=== PATIENT | female | born 1940 | race Caucasian/White ===

== ENCOUNTER 2021-09-06 02:13 | Observation (INO) ==
[2021-09-06] MEDS ORDERED: Ondansetron 4 MG/2 ML VIAL IVP PRN ×2 (06:49→10:05)
[2021-09-06] MEDS ORDERED: Naloxone 0.4 MG/ML INJ IVP PRN ×2 (06:49→10:02)
[2021-09-06] MEDS ORDERED: 0.9 % Sodium Chloride 1,000 ML IVC SCH (07:00)
[2021-09-06 07:53] LABS: Basophils % 0.4 %; Eosinophils # 0.1 K/mcL (0.0-0.6); Eosinophils % 1.6 %; Hematocrit 29.3 % (35.3-44.9); Hemoglobin 9.4 g/dL (11.5-15.4); Immature Granulocytes % 0.4 % (0-4); Lymphocytes # 0.8 K/mcL (0.6-4.6); Lymphocytes % 17.1 %; Mean Corpuscular HGB Conc 32.1 g/dL (31.6-35.5); Mean Corpuscular Hemoglobin 33.5 pg (28.0-33.3); Mean Corpuscular Volume 104.3 fL (83.0-100.0); Mean Platelet Volume 9.1 fL (9.4-12.4); Monocytes # 0.4 K/mcL (0.0-1.3); Monocytes % 8.9 %; Neutrophils # 3.5 K/mcL (1.6-8.9); Platelet Count 222 K/mcL (140-400); Red Blood Count 2.81 M/mcL (3.82-4.97); Red Cell Distribution Width 14.6 % (11.5-14.5); Segmented Neutrophils % 71.6 %; White Blood Count 4.9 K/mcL (4.3-11.1)
[2021-09-06 08:03] LABS: Albumin 2.8 g/dL (3.5-5.7); Albumin/Globulin Ratio 1.3 (1.1-2.2); Bilirubin,Direct 0.1 mg/dL (0.0-0.2); Bilirubin,Indirect 0.5 mg/dL (0.0-1.0); Bilirubin,Total 0.6 mg/dL (0.3-1.0); Globulin 2.1 g/dL (2.4-3.5); Magnesium 1.3 mg/dL (1.6-2.6); Potassium 3.4 mEq/L (3.5-5.1); Total Protein 4.9 g/dL (6.4-8.9)
[2021-09-06] MEDS ORDERED: Ondansetron ODT 4 MG TAB.RAPDIS SL PRN (10:02)
[2021-09-06] MEDS ORDERED: MOM Conc 10 ML UD.LIQ PO PRN (10:02)
[2021-09-06] MEDS ORDERED: Mag Hydrox/Al Hydrox/Simeth 30 ML UDC PO PRN (10:02)
[2021-09-06 10:38] LABS: INR 2.9; Prothrombin Time 32.2 Seconds (9.4-12.1)
[2021-09-06] MEDS: GlipiZIDE 5 MG TABLET PO SCH (11:24)
[2021-09-06] MEDS: FLUoxetine 20 MG CAPSULE PO SCH (11:24)
[2021-09-06] MEDS: *HR* Metformin 500 MG TABLET PO SCH ×2 (11:26→20:13)
[2021-09-06] MEDS: Famotidine 20 MG TABLET PO SCH (11:26)
[2021-09-06 16:28] LABS: Bilirubin,Urine Small (Negative); Blood,Urine Negative (Negative); Clarity,Urine Clear (Clear); Color,Urine Yellow (Yellow); Glucose,Urine (UA) Normal (Normal); Ketones,Urine Trace mg/dL (Negative); Leukocyte Esterase,Urine Negative (Negative); Nitrite,Urine Negative (Negative); Protein,Urine Trace mg/dL (Neg-Trace); Specific Gravity,Urine 1.025 (1.010-1.025); Urobilinogen,Urine Normal (Normal)
[2021-09-06] MEDS ORDERED: *HR* Warfarin 5 MG TABLET PO ONE (18:00)
[2021-09-06] MEDS: Gabapentin 300 MG CAPSULE PO SCH (20:13)
[2021-09-07 04:54] LABS: Basophils % 0.4 %; Eosinophils # 0.1 K/mcL (0.0-0.6); Eosinophils % 2.5 %; Hematocrit 28.6 % (35.3-44.9); Hemoglobin 9.2 g/dL (11.5-15.4); Immature Granulocytes % 0.4 % (0-4); Lymphocytes # 1.2 K/mcL (0.6-4.6); Lymphocytes % 25.7 %; Mean Corpuscular HGB Conc 32.2 g/dL (31.6-35.5); Mean Corpuscular Hemoglobin 33.5 pg (28.0-33.3); Mean Platelet Volume 9.2 fL (9.4-12.4); Monocytes # 0.5 K/mcL (0.0-1.3); Monocytes % 10.9 %; Neutrophils # 2.9 K/mcL (1.6-8.9); Platelet Count 220 K/mcL (140-400); Red Blood Count 2.75 M/mcL (3.82-4.97); Segmented Neutrophils % 60.1 %; White Blood Count 4.8 K/mcL (4.3-11.1)
[2021-09-07 04:57] LABS: INR 2.2; Prothrombin Time 24.5 Seconds (9.4-12.1)
[2021-09-07 05:08] LABS: Albumin 2.8 g/dL (3.5-5.7); Albumin/Globulin Ratio 1.5 (1.1-2.2); Bilirubin,Total 0.4 mg/dL (0.3-1.0); Calcium 9.2 mg/dL (8.6-10.3); Globulin 1.9 g/dL (2.4-3.5); Magnesium 1.6 mg/dL (1.6-2.6); Phosphorous 2.5 mg/dL (2.7-4.5); Potassium 3.8 mEq/L (3.5-5.1); Total Protein 4.7 g/dL (6.4-8.9)
[2021-09-07] MEDS: *HR* Metformin 500 MG TABLET PO SCH ×2 (08:35→20:55)
[2021-09-07] MEDS: FLUoxetine 20 MG CAPSULE PO SCH (08:35)
[2021-09-07] MEDS: Famotidine 20 MG TABLET PO SCH (08:36)
[2021-09-07] MEDS: GlipiZIDE 5 MG TABLET PO SCH (08:36)
[2021-09-07] MEDS: Acetaminophen 325 MG TABLET PO PRN (08:36)
[2021-09-07] MEDS ORDERED: Warfarin perPT PO SCH (09:00)
[2021-09-07] MEDS ORDERED: Warfarin perPT PO PRN (14:00)
[2021-09-07] MEDS: Gabapentin 300 MG CAPSULE PO SCH (20:55)
[2021-09-08] MEDS: FLUoxetine 20 MG CAPSULE PO SCH (08:08)
[2021-09-08] MEDS: *HR* Metformin 500 MG TABLET PO SCH ×2 (08:08→23:07)
[2021-09-08] MEDS: GlipiZIDE 5 MG TABLET PO SCH (08:09)
[2021-09-08] MEDS: Famotidine 20 MG TABLET PO SCH (09:10)
[2021-09-08 18:08] LABS: INR 1.5; Prothrombin Time 16.9 Seconds (9.4-12.1)
[2021-09-08] MEDS ORDERED: *HR* Warfarin 7.5 MG TABLET PO ONE (18:30)
[2021-09-08] MEDS: Gabapentin 300 MG CAPSULE PO SCH (23:06)
[2021-09-08] MEDS: Melatonin 3 MG TABLET PO PRN (23:07)
[2021-09-09 04:43] LABS: Hematocrit 28.6 % (35.3-44.9); Hemoglobin 9.1 g/dL (11.5-15.4); Mean Corpuscular HGB Conc 31.8 g/dL (31.6-35.5); Mean Corpuscular Hemoglobin 33.7 pg (28.0-33.3); Mean Corpuscular Volume 105.9 fL (83.0-100.0); Mean Platelet Volume 9.2 fL (9.4-12.4); Platelet Count 198 K/mcL (140-400); Red Cell Distribution Width 14.7 % (11.5-14.5); White Blood Count 4.9 K/mcL (4.3-11.1)
[2021-09-09 04:47] LABS: INR 1.5; Prothrombin Time 16.4 Seconds (9.4-12.1)
[2021-09-09 04:59] LABS: BUN/Creatinine Ratio 31 (6-26); Blood Urea Nitrogen 32 mg/dL (8-23); Calcium 9.1 mg/dL (8.6-10.3); Carbon Dioxide 27 mEq/L (23-29); Chloride 106 mEq/L (98-107); Glucose 90 mg/dL (70-105); Osmolality,Calculated 292 (280-300); Potassium 4.3 mEq/L (3.5-5.1); Sodium 138 mEq/L (136-145); eGFR For African Americans > 60 (> 60); eGFR For Non-African Americans 52 (> 60)
[2021-09-09] MEDS: Acetaminophen 325 MG TABLET PO PRN ×2 (08:40→21:36)
[2021-09-09] MEDS: GlipiZIDE 5 MG TABLET PO SCH (08:40)
[2021-09-09] MEDS: *HR* Metformin 500 MG TABLET PO SCH ×2 (08:40→21:36)
[2021-09-09] MEDS: FLUoxetine 20 MG CAPSULE PO SCH (08:40)
[2021-09-09] MEDS: Famotidine 20 MG TABLET PO SCH (08:41)
[2021-09-09 12:22] LABS: % Iron Saturation 31 % (15-50); Iron 73 mcg/dL (50-170); Transferrin 166 mg/dL (203-362)
[2021-09-09 12:48] LABS: Vitamin B12 76 pg/mL (250-1100)
[2021-09-09 12:51] LABS: Folate > 22.3 ng/mL (3.0-16.0)
[2021-09-09] MEDS ORDERED: *HR* Dextrose 50 % in Water (Syg) 50 ML SYRINGE IVP PRN (15:53)
[2021-09-09] MEDS ORDERED: D5% in Water 1,000 ML IVC PRN (15:53)
[2021-09-09] MEDS ORDERED: Dextrose Gel 15 GM/37.5 ML TUBE PO PRN ×2 (15:53)
[2021-09-09] MEDS ORDERED: *HR* Warfarin 7.5 MG TABLET PO ONE (18:00)
[2021-09-09] MEDS: Nystatin POWDER 30 GM BOTTLE TP SCH (21:36)
[2021-09-09] MEDS: Melatonin 3 MG TABLET PO PRN (21:36)
[2021-09-09] MEDS: Gabapentin 300 MG CAPSULE PO SCH (21:37)
[2021-09-10 04:57] LABS: INR 1.5; Prothrombin Time 16.6 Seconds (9.4-12.1)
[2021-09-10] MEDS: Famotidine 20 MG TABLET PO SCH (08:08)
[2021-09-10] MEDS: Nystatin POWDER 30 GM BOTTLE TP SCH ×3 (08:08→20:48)
[2021-09-10] MEDS: *HR* Metformin 500 MG TABLET PO SCH ×2 (08:08→20:46)
[2021-09-10] MEDS: FLUoxetine 20 MG CAPSULE PO SCH (08:08)
[2021-09-10] MEDS: Acetaminophen 325 MG TABLET PO PRN ×2 (08:09→20:46)
[2021-09-10] MEDS: Cyanocobalamin (B-12) 1,000 MCG TABLET PO SCH (16:33)
[2021-09-10] MEDS ORDERED: *HR* Warfarin 7.5 MG TABLET PO ONE (18:00)
[2021-09-10] MEDS: Gabapentin 300 MG CAPSULE PO SCH (20:47)
[2021-09-10] MEDS: Melatonin 3 MG TABLET PO PRN (20:47)
[2021-09-11 04:51] LABS: INR 2.4; Prothrombin Time 26.2 Seconds (9.4-12.1)
[2021-09-11] MEDS: Cyanocobalamin (B-12) 1,000 MCG TABLET PO SCH (10:14)
[2021-09-11] MEDS: Famotidine 20 MG TABLET PO SCH (10:14)
[2021-09-11] MEDS: FLUoxetine 20 MG CAPSULE PO SCH (10:14)
[2021-09-11] MEDS: Nystatin POWDER 30 GM BOTTLE TP SCH ×2 (10:15→15:16)
[2021-09-11] MEDS: *HR* Metformin 500 MG TABLET PO SCH ×2 (10:15→21:12)
[2021-09-11] MEDS ORDERED: *HR* Warfarin 2 MG TABLET PO ONE (18:00)
[2021-09-11 19:35] VITALS: PULSE 80; TEMP 97.7; O2SAT 98
[2021-09-11] MEDS: Gabapentin 300 MG CAPSULE PO SCH (21:12)
[2021-09-12 05:37] LABS: INR 2.8; Prothrombin Time 31.4 Seconds (9.4-12.1)
[2021-09-12 07:13] VITALS: BP 127/66; RESP 17
[2021-09-12] MEDS: Nystatin POWDER 30 GM BOTTLE TP SCH (08:24)
[2021-09-12] MEDS: FLUoxetine 20 MG CAPSULE PO SCH (08:24)
[2021-09-12] MEDS: *HR* Metformin 500 MG TABLET PO SCH (08:24)
[2021-09-12] MEDS: Cyanocobalamin (B-12) 1,000 MCG TABLET PO SCH (08:25)
[2021-09-12] MEDS: Famotidine 20 MG TABLET PO SCH (08:25)
== END 2021-09-12 11:20 | disposition hospice, home (50) ==
LOC: INPGRE
PROVIDERS: ADMIT Family Medicine; ATTEND Family Medicine

== ENCOUNTER 2021-11-17 10:03 | Inpatient (IN) ==
[2021-11-17] MEDS ORDERED: *HR* LORazepam 0.5 MG TABLET PO PRN (16:28)
[2021-11-17] MEDS ORDERED: Ondansetron ODT 4 MG TAB.RAPDIS SL PRN (16:28)
[2021-11-17] MEDS ORDERED: haloperidoL 1 MG TABLET PO PRN (16:41)
[2021-11-17] MEDS: Gabapentin 300 MG CAPSULE PO SCH (20:53)
[2021-11-17] MEDS: Sennosides 8.6 MG TABLET PO SCH (20:54)
[2021-11-17] MEDS: Acetaminophen 325 MG TABLET PO SCH (20:54)
[2021-11-17] MEDS ORDERED: Famotidine 20 MG TABLET PO SCH (21:00)
[2021-11-18] MEDS: Acetaminophen 325 MG TABLET PO SCH ×2 (03:39→09:05)
[2021-11-18 04:21] LABS: Hemoglobin 9.2 g/dL (11.5-15.4); Mean Corpuscular HGB Conc 31.7 g/dL (31.6-35.5); Mean Corpuscular Hemoglobin 34.2 pg (28.0-33.3); Mean Corpuscular Volume 107.8 fL (83.0-100.0); Mean Platelet Volume 9.4 fL (9.4-12.4); Platelet Count 204 K/mcL (140-400); Red Blood Count 2.69 M/mcL (3.82-4.97); White Blood Count 3.9 K/mcL (4.3-11.1)
[2021-11-18 04:41] LABS: Albumin 2.6 g/dL (3.5-5.7); Albumin/Globulin Ratio 1.3 (1.1-2.2); Bilirubin,Total 0.3 mg/dL (0.3-1.0); Calcium 8.8 mg/dL (8.6-10.3); Magnesium 1.7 mg/dL (1.6-2.6); Potassium 4.3 mEq/L (3.5-5.1); Total Protein 4.6 g/dL (6.4-8.9)
[2021-11-18] MEDS: *HR* Enoxaparin 40 MG/0.4 ML SYRINGE SQ SCH (06:28)
[2021-11-18] MEDS: Loratadine 10 MG TABLET PO SCH (09:06)
[2021-11-18] MEDS: Sennosides 8.6 MG TABLET PO SCH ×2 (09:06→20:29)
[2021-11-18 14:02] LABS: Estimated Average Glucose 174 mg/dl; Hemoglobin A1C 7.7 %
[2021-11-18 16:48] LABS: Bilirubin,Urine Negative (Negative); Blood,Urine Negative (Negative); Clarity,Urine Clear (Clear); Color,Urine Yellow (Yellow); Glucose,Urine (UA) 100 mg/dL (Normal); Ketones,Urine Negative (Negative); Leukocyte Esterase,Urine Small (Negative); Nitrite,Urine Negative (Negative); Protein,Urine Negative (Neg-Trace); Specific Gravity,Urine 1.025 (1.010-1.025); Urobilinogen,Urine Normal (Normal)
[2021-11-18 16:52] LABS: Bacteria,Urine Few per hpf (None-Few); RBC,Urine 0-3 per hpf (0-3); Squamous Epithelial Cell,Urine Few per hpf (None-Few)
[2021-11-18] MEDS: Famotidine 20 MG TABLET PO SCH (20:28)
[2021-11-18] MEDS: Gabapentin 300 MG CAPSULE PO SCH (20:28)
[2021-11-19] MEDS: *HR* Enoxaparin 40 MG/0.4 ML SYRINGE SQ SCH (05:27)
[2021-11-19] MEDS: Loratadine 10 MG TABLET PO SCH (08:19)
[2021-11-19] MEDS: Sennosides 8.6 MG TABLET PO SCH ×2 (08:19→20:36)
[2021-11-19] MEDS: Famotidine 20 MG TABLET PO SCH (20:36)
[2021-11-19] MEDS: Gabapentin 300 MG CAPSULE PO SCH (20:36)
[2021-11-20] MEDS: *HR* Enoxaparin 40 MG/0.4 ML SYRINGE SQ SCH (04:34)
[2021-11-20 05:46] LABS: Basophils % 0.5 %; Eosinophils # 0.1 K/mcL (0.0-0.6); Hematocrit 29.3 % (35.3-44.9); Hemoglobin 9.3 g/dL (11.5-15.4); Immature Granulocytes % 0.2 % (0-4); Lymphocytes # 1.1 K/mcL (0.6-4.6); Lymphocytes % 27.4 %; Mean Corpuscular HGB Conc 31.7 g/dL (31.6-35.5); Mean Corpuscular Hemoglobin 34.4 pg (28.0-33.3); Mean Corpuscular Volume 108.5 fL (83.0-100.0); Mean Platelet Volume 9.6 fL (9.4-12.4); Monocytes # 0.5 K/mcL (0.0-1.3); Monocytes % 12.2 %; Neutrophils # 2.4 K/mcL (1.6-8.9); Platelet Count 225 K/mcL (140-400); Red Cell Distribution Width 13.2 % (11.5-14.5); Segmented Neutrophils % 57.7 %; White Blood Count 4.1 K/mcL (4.3-11.1)
[2021-11-20 06:09] LABS: Albumin 2.6 g/dL (3.5-5.7); Albumin/Globulin Ratio 1.2 (1.1-2.2); Bilirubin,Total 0.3 mg/dL (0.3-1.0); Globulin 2.2 g/dL (2.4-3.5); Magnesium 1.6 mg/dL (1.6-2.6); Potassium 4.6 mEq/L (3.5-5.1); Total Protein 4.8 g/dL (6.4-8.9)
[2021-11-20] MEDS: Sennosides 8.6 MG TABLET PO SCH ×2 (08:29→19:46)
[2021-11-20] MEDS: Loratadine 10 MG TABLET PO SCH (08:30)
[2021-11-20] MEDS: Gabapentin 300 MG CAPSULE PO SCH (19:45)
[2021-11-20] MEDS: Famotidine 20 MG TABLET PO SCH (19:46)
[2021-11-21] MEDS: *HR* Enoxaparin 40 MG/0.4 ML SYRINGE SQ SCH (05:55)
[2021-11-21] MEDS: Loratadine 10 MG TABLET PO SCH (09:43)
[2021-11-21] MEDS: *HR* OxyCODONE Immed Rel 5 MG TABLET PO PRN (09:43)
[2021-11-21] MEDS: Sennosides 8.6 MG TABLET PO SCH ×2 (09:44→20:45)
[2021-11-21] MEDS: Gabapentin 300 MG CAPSULE PO SCH (20:45)
[2021-11-21] MEDS: Famotidine 20 MG TABLET PO SCH (20:46)
[2021-11-21] MEDS: cephALEXin 500 MG CAPSULE PO SCH (20:46)
[2021-11-22] MEDS: *HR* Enoxaparin 40 MG/0.4 ML SYRINGE SQ SCH (04:57)
[2021-11-22] MEDS: Sennosides 8.6 MG TABLET PO SCH ×2 (08:23→21:39)
[2021-11-22] MEDS: cephALEXin 500 MG CAPSULE PO SCH ×3 (08:23→21:38)
[2021-11-22] MEDS: *HR* OxyCODONE Immed Rel 5 MG TABLET PO PRN ×2 (08:23→21:39)
[2021-11-22] MEDS: Loratadine 10 MG TABLET PO SCH (08:23)
[2021-11-22] MEDS: tiZANidine 4 MG TABLET PO PRN (12:29)
[2021-11-22] MEDS: Famotidine 20 MG TABLET PO SCH (21:38)
[2021-11-22] MEDS: Gabapentin 300 MG CAPSULE PO SCH (21:38)
[2021-11-23 03:52] LABS: Basophils % 0.5 %; Eosinophils # 0.1 K/mcL (0.0-0.6); Eosinophils % 2.7 %; Hemoglobin 8.5 g/dL (11.5-15.4); Immature Granulocytes % 0.3 % (0-4); Lymphocytes # 1.3 K/mcL (0.6-4.6); Mean Corpuscular HGB Conc 31.5 g/dL (31.6-35.5); Mean Corpuscular Hemoglobin 34.1 pg (28.0-33.3); Mean Corpuscular Volume 108.4 fL (83.0-100.0); Mean Platelet Volume 9.6 fL (9.4-12.4); Monocytes # 0.5 K/mcL (0.0-1.3); Monocytes % 12.8 %; Neutrophils # 1.8 K/mcL (1.6-8.9); Platelet Count 231 K/mcL (140-400); Red Blood Count 2.49 M/mcL (3.82-4.97); Red Cell Distribution Width 13.2 % (11.5-14.5); Segmented Neutrophils % 49.7 %; White Blood Count 3.7 K/mcL (4.3-11.1)
[2021-11-23 04:10] LABS: Calcium 8.9 mg/dL (8.6-10.3); Potassium 4.8 mEq/L (3.5-5.1)
[2021-11-23] MEDS: *HR* Enoxaparin 40 MG/0.4 ML SYRINGE SQ SCH (05:44)
[2021-11-23] MEDS: Sennosides 8.6 MG TABLET PO SCH ×2 (09:19→21:16)
[2021-11-23] MEDS: Loratadine 10 MG TABLET PO SCH (09:19)
[2021-11-23] MEDS: cephALEXin 500 MG CAPSULE PO SCH ×3 (09:19→21:16)
[2021-11-23] MEDS: Famotidine 20 MG TABLET PO SCH (21:16)
[2021-11-23] MEDS: Gabapentin 300 MG CAPSULE PO SCH (21:16)
[2021-11-23] MEDS: *HR* OxyCODONE Immed Rel 5 MG TABLET PO PRN (21:17)
[2021-11-24] MEDS: *HR* Enoxaparin 40 MG/0.4 ML SYRINGE SQ SCH (06:37)
[2021-11-24] MEDS: *HR* OxyCODONE Immed Rel 5 MG TABLET PO PRN (09:08)
[2021-11-24] MEDS: Loratadine 10 MG TABLET PO SCH (09:08)
[2021-11-24] MEDS: cephALEXin 500 MG CAPSULE PO SCH ×3 (09:08→21:54)
[2021-11-24] MEDS: Sennosides 8.6 MG TABLET PO SCH ×2 (09:09→21:54)
[2021-11-24] MEDS: tiZANidine 4 MG TABLET PO PRN (15:45)
[2021-11-24] MEDS: Famotidine 20 MG TABLET PO SCH (21:54)
[2021-11-24] MEDS: Gabapentin 300 MG CAPSULE PO SCH (21:54)
[2021-11-25] MEDS: *HR* OxyCODONE Immed Rel 5 MG TABLET PO PRN (04:49)
[2021-11-25] MEDS: *HR* Enoxaparin 40 MG/0.4 ML SYRINGE SQ SCH (04:52)
[2021-11-25] MEDS: cephALEXin 500 MG CAPSULE PO SCH ×3 (09:19→20:01)
[2021-11-25] MEDS: Loratadine 10 MG TABLET PO SCH (09:19)
[2021-11-25] MEDS: Sennosides 8.6 MG TABLET PO SCH ×2 (09:20→20:01)
[2021-11-25] MEDS: Gabapentin 300 MG CAPSULE PO SCH (20:00)
[2021-11-25] MEDS: Famotidine 20 MG TABLET PO SCH (20:01)
[2021-11-26] MEDS: *HR* Enoxaparin 40 MG/0.4 ML SYRINGE SQ SCH (05:09)
[2021-11-26] MEDS: Sennosides 8.6 MG TABLET PO SCH ×2 (09:33→21:41)
[2021-11-26] MEDS: cephALEXin 500 MG CAPSULE PO SCH ×3 (09:33→21:41)
[2021-11-26] MEDS: Loratadine 10 MG TABLET PO SCH (09:34)
[2021-11-26] MEDS: Gabapentin 300 MG CAPSULE PO SCH (21:40)
[2021-11-26] MEDS: Famotidine 20 MG TABLET PO SCH (21:41)
[2021-11-27 05:03] LABS: Basophils % 0.9 %; Eosinophils # 0.1 K/mcL (0.0-0.6); Hematocrit 28.5 % (35.3-44.9); Hemoglobin 9.1 g/dL (11.5-15.4); Immature Granulocytes % 0.3 % (0-4); Lymphocytes % 28.2 %; Mean Corpuscular HGB Conc 31.9 g/dL (31.6-35.5); Mean Corpuscular Hemoglobin 34.5 pg (28.0-33.3); Mean Platelet Volume 9.6 fL (9.4-12.4); Monocytes # 0.5 K/mcL (0.0-1.3); Monocytes % 13.8 %; Platelet Count 244 K/mcL (140-400); Red Blood Count 2.64 M/mcL (3.82-4.97); Red Cell Distribution Width 13.4 % (11.5-14.5); Segmented Neutrophils % 52.8 %; White Blood Count 3.5 K/mcL (4.3-11.1)
[2021-11-27 05:07] LABS: Neutrophils # 1.9 K/mcL (1.6-8.9)
[2021-11-27 05:14] LABS: Calcium 9.3 mg/dL (8.6-10.3); Potassium 5.1 mEq/L (3.5-5.1)
[2021-11-27] MEDS: *HR* Enoxaparin 40 MG/0.4 ML SYRINGE SQ SCH (05:29)
[2021-11-27] MEDS: Sennosides 8.6 MG TABLET PO SCH ×2 (09:41→22:43)
[2021-11-27] MEDS: Loratadine 10 MG TABLET PO SCH (09:41)
[2021-11-27] MEDS: cefTRIAXone 1,000 MG in 0.9 % Sodium Chloride 10 ML IVP SCH (16:13)
[2021-11-27 20:26] LABS: Bilirubin,Urine Negative (Negative); Blood,Urine Negative (Negative); Clarity,Urine Slightly Cloudy (Clear); Glucose,Urine (UA) 100 mg/dL (Normal); Ketones,Urine Negative (Negative); Leukocyte Esterase,Urine Negative (Negative); Nitrite,Urine Negative (Negative); PH,Urine 5.5 pH Units (5.0-8.0); Protein,Urine Negative (Neg-Trace); Urobilinogen,Urine Normal (Normal)
[2021-11-27 20:36] LABS: Amorphous Sediment,Urine Few per hpf (None-Few); Color,Urine Yellow (Yellow); Squamous Epithelial Cell,Urine Few per hpf (None-Few)
[2021-11-27] MEDS: Gabapentin 300 MG CAPSULE PO SCH (22:43)
[2021-11-27] MEDS: Famotidine 20 MG TABLET PO SCH (22:43)
[2021-11-28 05:02] LABS: Eosinophils # 0.2 K/mcL (0.0-0.6); Eosinophils % 4.1 %; Hematocrit 29.1 % (35.3-44.9); Hemoglobin 9.3 g/dL (11.5-15.4); Lymphocytes # 1.2 K/mcL (0.6-4.6); Lymphocytes % 30.9 %; Mean Corpuscular Hemoglobin 34.3 pg (28.0-33.3); Mean Corpuscular Volume 107.4 fL (83.0-100.0); Mean Platelet Volume 9.5 fL (9.4-12.4); Monocytes # 0.6 K/mcL (0.0-1.3); Monocytes % 14.3 %; Neutrophils # 1.9 K/mcL (1.6-8.9); Platelet Count 239 K/mcL (140-400); Red Blood Count 2.71 M/mcL (3.82-4.97); Red Cell Distribution Width 13.5 % (11.5-14.5); Segmented Neutrophils % 49.7 %; White Blood Count 3.9 K/mcL (4.3-11.1)
[2021-11-28 05:13] LABS: Calcium 9.2 mg/dL (8.6-10.3)
[2021-11-28] MEDS: *HR* Enoxaparin 40 MG/0.4 ML SYRINGE SQ SCH (05:52)
[2021-11-28] MEDS: Sennosides 8.6 MG TABLET PO SCH ×2 (07:55→22:17)
[2021-11-28] MEDS: cefTRIAXone 1,000 MG in 0.9 % Sodium Chloride 10 ML IVP SCH (07:55)
[2021-11-28] MEDS: Loratadine 10 MG TABLET PO SCH (07:55)
[2021-11-28 20:36] VITALS: O2SAT 96
[2021-11-28] MEDS: Gabapentin 300 MG CAPSULE PO SCH (22:17)
[2021-11-28] MEDS: Famotidine 20 MG TABLET PO SCH (22:17)
[2021-11-29] MEDS: *HR* Enoxaparin 40 MG/0.4 ML SYRINGE SQ SCH (06:00)
[2021-11-29] MEDS: Loratadine 10 MG TABLET PO SCH (08:22)
[2021-11-29] MEDS: Sennosides 8.6 MG TABLET PO SCH (08:22)
[2021-11-29 09:06] VITALS: BP 135/81; PULSE 78; RESP 16; TEMP 97.8
== END 2021-11-29 11:20 | disposition hospice, home (50) | DRG 682 ==
LOC: INPGRE 16:11
PROVIDERS: ADMIT Family Medicine; ATTEND Family Medicine